=== PATIENT | male | born 1945 | race Caucasian/White ===

== ENCOUNTER 2018-09-05 11:39 | Day surgery (SDC) | payer MEDICARE ==
[~2018-09-05] VITALS: Ht 180.3 cm; Wt 93.4 kg
[~2018-09-05 11:39] MED LIST: ADVANCED PROBI625 MG PO; ALLO300 PO; AMOCLA875 PO; ASCO500; ASCO500 PO; ASPI325; BUDE32NIS; BUPR150T2 PO; BUSP5 PO; CALCA500CH; CALCIUM CITRAT1 EAC6 PO; CALGLU500; CIPR500 PO; CLON.5; CLON.5 PO; CLON1; DIPATR PO; DIVA500EC; ERGO400; ESOM20 PO; FENO145 PO; FISH1000 PO; FOLI400; FURO40 PO; Fish Oil 10001000 MG PO; HYDACE5; HYDACE5 PO; HYDCHL25; LACT10SY PO; LEVFLO500 PO; LO-DOSE ASPIRIN81 MG PO; LOPE2C PO; Loratadine10 MG PO; METF500 PO; METO10 PO; METR500; METR500 PO; MINO100; MSM1000; NIAC500; ONDA8ODT MM; OXYACE5T PO; PANT40 PO; PIOG15; PIOG15 PO; POTA10T; PRAV20 PO; PRAVACHOL 40 MG; PROM25 PO; RANI150; RXHYOS.125 PO; RXOXYACE PO; RXPROM25S PR; SALS750; SERT100; SERT100 PO; SUPER B-COMPL400 MCG PO; TOCO400; TYLENOL ARTHRITIS; VITB100; Verotin-Gr Cap1 EACH PO; [UNRECOGNIZED DRUG - OTHER]; [UNRECOGNIZED DRUG - OTHER]
[2018-12-08] MEDS ORDERED: LISI5 PO (14:35)
[2018-12-08] MEDS ORDERED: SUPER B MAXI C0.4 MG PO (14:36)
[2018-12-08] MEDS ORDERED: ACET325 PO (14:37)
[2018-12-08] MEDS ORDERED: STOOL SOFTENER PO (14:39)
== END 2018-09-05 14:04 | disposition home or self-care (01) ==
LOC: ORSCSDS 11:39
PROVIDERS: Internal Medicine Gastroenterology
PROC: 0DBM8ZX Excision of Descending Colon, Via Natural or Artificial Opening Endoscopic, Diagnostic (ICD-10-PCS; principal; 2018-09-05 13:00)
DX: K62.5 Hemorrhage of anus and rectum (principal); K57.30 Diverticulosis of large intestine without perforation or abscess without bleeding; G47.30 Sleep apnea, unspecified; K64.8 Other hemorrhoids; G47.33 Obstructive sleep apnea (adult) (pediatric); J44.9 Chronic obstructive pulmonary disease, unspecified; E11.9 Type 2 diabetes mellitus without complications; Z79.84 Long term (current) use of oral hypoglycemic drugs; Z79.82 Long term (current) use of aspirin; Z79.899 Other long term (current) drug therapy
CPT/HCPCS: 82947; 88305; J2704; J7120

== ENCOUNTER 2018-10-16 18:09 | Emergency (ER) | payer MEDICARE ==
[~2018-10-16] VITALS: Ht 177.8 cm; Wt 95.2 kg
[2018-10-16] MEDS ORDERED: CEPH500 PO (19:10)
[2018-10-16] MEDS ORDERED: Bactrim Ds Tab1 EACH PO (19:11)
[2018-12-08] MEDS ORDERED: LISI5 PO (14:35)
[2018-12-08] MEDS ORDERED: SUPER B MAXI C0.4 MG PO (14:36)
[2018-12-08] MEDS ORDERED: ACET325 PO (14:37)
[2018-12-08] MEDS ORDERED: STOOL SOFTENER PO (14:39)
== END 2018-10-16 19:30 | disposition home or self-care (01) ==
LOC: ER 18:09
DX: L03.012 Cellulitis of left finger (principal); Z88.2 Allergy status to sulfonamides; Z88.8 Allergy status to other drugs, medicaments and biological substances; Z88.1 Allergy status to other antibiotic agents; Z88.5 Allergy status to narcotic agent; Z79.899 Other long term (current) drug therapy; Z79.84 Long term (current) use of oral hypoglycemic drugs; Z79.82 Long term (current) use of aspirin; E11.9 Type 2 diabetes mellitus without complications; Z87.891 Personal history of nicotine dependence
CPT/HCPCS: 99283

== ENCOUNTER 2018-12-12 07:45 | Day surgery (SDC) | payer MEDICARE ==
[~2018-12-12] VITALS: Ht 177.8 cm; Wt 97.1 kg
[~2018-12-12 07:45] MED LIST changes: +ACET325 PO; +Bactrim Ds Tab1 EACH PO; +CEPH500 PO; +LISI5 PO; +STOOL SOFTENER PO; +SUPER B MAXI C0.4 MG PO
--- NOTE | 2018-12-12 08:29 | NUR ---
THE PATIENT WAS ADMITTED TO DAY SURGERY FOR HIS PROCEDURE. THE PATIEN STATED THAT HE WAS NPO SINCE 1800 ON 12/11.
--- NOTE | 2018-12-12 12:14 | NUR ---
Patient up to Ambulate independently. Gait steady. Discharge instructions reviewed with patient. Patient verbalizes understanding. Copy given to patient to take home. Patient States Post-Procedure ride home has been arranged. Discharged via wheelchair to private car for ride home.
== END 2018-12-12 12:17 | disposition home or self-care (01) ==
LOC: ORSCMMR 07:45 → ORD 09:30 → ORSCMMR 12:17
PROVIDERS: Surgery
PROC: 06BY0ZC Excision of Hemorrhoidal Plexus, Open Approach (ICD-10-PCS; principal; 2018-12-12 09:30)
DX: K64.2 Third degree hemorrhoids (principal); I10 Essential (primary) hypertension; E11.9 Type 2 diabetes mellitus without complications; G47.33 Obstructive sleep apnea (adult) (pediatric); J44.9 Chronic obstructive pulmonary disease, unspecified; M79.7 Fibromyalgia; Z79.82 Long term (current) use of aspirin; Z79.899 Other long term (current) drug therapy; Z79.84 Long term (current) use of oral hypoglycemic drugs
CPT/HCPCS: 82947; 88304; J0690; J1100; J2370; J2405; J2704; J3010; J7120

== ENCOUNTER → 2020-07-14 | Outpatient (CLI) | payer MEDICARE ==
[2020-07-16 09:04] LABS: C DIFFICILE DNA NEGATIVE (Negative)
== END | disposition home or self-care (01) ==
LOC: LAB SHORT 12:00 → LAB 12:00
PROVIDERS: Physician Assistant Medical
DX: R19.7 Diarrhea, unspecified (principal)
CPT/HCPCS: 87015; 87045; 87046; 87205; 87493; 87899

== ENCOUNTER 2021-11-14 08:30 | Day surgery (SDC) | payer MEDICARE ==
[~2021-11-14] VITALS: Ht 180.3 cm; Wt 90.4 kg
--- NOTE | 2021-11-14 09:34 | NUR ---
11/14/21 0934 Jane Cortes History, Chart, Medications and Allergies reviewed before start of procedure.DR RUANO PROVIDING ANESTHESIA SEE RECORDS
--- NOTE | 2021-11-14 09:36 | NUR ---
Ambulatory in Day Surgery History, Chart, Medications and Allergies reviewed before start of procedure. Pre-Op teaching done. Pt verbalizes understanding. Patient States Post-Procedure ride home has been arranged.
--- NOTE | 2021-11-14 11:06 | NUR ---
Discharge instructions reviewed with patient. Patient verbalizes understanding. Copy given to patient to take home. Discharged via wheelchair to private car for ride home.
== END 2021-11-14 23:11 | disposition home or self-care (01) ==
LOC: ORD 08:30 → ORSCMMR 08:31 → ORD 09:45
PROVIDERS: Internal Medicine Gastroenterology
PROC: 0DBK8ZX Excision of Ascending Colon, Via Natural or Artificial Opening Endoscopic, Diagnostic (ICD-10-PCS; principal; 2021-11-14 10:00)
PROC: 0DBP8ZX Excision of Rectum, Via Natural or Artificial Opening Endoscopic, Diagnostic (ICD-10-PCS; principal; 2021-11-14 10:00)
PROC: 0DBE8ZX Excision of Large Intestine, Via Natural or Artificial Opening Endoscopic, Diagnostic (ICD-10-PCS; principal; 2021-11-14 10:00)
DX: Z12.11 Encounter for screening for malignant neoplasm of colon (principal); D12.2 Benign neoplasm of ascending colon; D12.7 Benign neoplasm of rectosigmoid junction; K57.30 Diverticulosis of large intestine without perforation or abscess without bleeding; K62.1 Rectal polyp; E11.9 Type 2 diabetes mellitus without complications; G47.30 Sleep apnea, unspecified; Z96.643 Presence of artificial hip joint, bilateral; Z79.84 Long term (current) use of oral hypoglycemic drugs; Z88.5 Allergy status to narcotic agent; Z88.6 Allergy status to analgesic agent; Z88.1 Allergy status to other antibiotic agents
CPT/HCPCS: 82947; 88305

== ENCOUNTER 2023-03-04 11:47 | Day surgery (SDC) | payer OTHER ==
[~2023-03-04] VITALS: Ht 177.8 cm; Wt 90.9 kg
[~2023-03-04 11:47] MED LIST changes: +ALBU90OI; +B-121000 MC3; -METF500 PO; +Metformin HCl750 MG; +STIOLTO RESPIMAT4 G1 INH
[2023-03-04 14:33] VITALS: BP 133/67
== END 2023-03-04 14:50 | disposition home or self-care (01) ==
LOC: ORSCSDS 11:47
PROVIDERS: Ophthalmology
PROC: 08RJ3JZ Replacement of Right Lens with Synthetic Substitute, Percutaneous Approach (ICD-10-PCS; principal; 2023-03-04 13:30)
DX: E11.36 Type 2 diabetes mellitus with diabetic cataract (principal); H25.11 Age-related nuclear cataract, right eye; H52.201 Unspecified astigmatism, right eye; G47.33 Obstructive sleep apnea (adult) (pediatric); I10 Essential (primary) hypertension; J44.9 Chronic obstructive pulmonary disease, unspecified; F43.10 Post-traumatic stress disorder, unspecified; Z79.84 Long term (current) use of oral hypoglycemic drugs; Z79.899 Other long term (current) drug therapy
CPT/HCPCS: 82947; J2250; J3010; J3301; J7040; V2632

== ENCOUNTER 2023-03-11 11:37 | Day surgery (SDC) | payer OTHER ==
[~2023-03-11] VITALS: Ht 177.8 cm; Wt 92.2 kg
--- NOTE | 2023-03-11 13:00 | NUR ---
03/11/23 1300 Angie Hicks AT 1254 [address] AT 1257
[2023-03-11 14:47] VITALS: BP 130/73
--- NOTE | 2023-03-11 15:06 | NUR ---
03/11/23 1506 GEOVANY MEDINA EKG DONE PER DR CHERYL PINO/PT HAD KARIN T/O CASE. PT FOLLING UP W/ PCP TODAY W/ COPY OF EKG IN HAND. EKG TRANSMITTED TO CARDIOLOGY. PT VITALS STABLE; NO COMPLAINT OF SYMPTOMS.
== END 2023-03-11 15:00 | disposition home or self-care (01) ==
LOC: ORSCSDS 11:37
PROVIDERS: Ophthalmology
PROC: 08RK3JZ Replacement of Left Lens with Synthetic Substitute, Percutaneous Approach (ICD-10-PCS; principal; 2023-03-11 13:00)
DX: E11.36 Type 2 diabetes mellitus with diabetic cataract (principal); H25.12 Age-related nuclear cataract, left eye; H52.202 Unspecified astigmatism, left eye; Z96.1 Presence of intraocular lens; J44.9 Chronic obstructive pulmonary disease, unspecified; F43.10 Post-traumatic stress disorder, unspecified; Z79.84 Long term (current) use of oral hypoglycemic drugs; Z79.899 Other long term (current) drug therapy; Z87.891 Personal history of nicotine dependence
CPT/HCPCS: 82947; 93005; 93010; J2250; J3010; J3301; J7040; V2632